=== PATIENT | female | born 1985 | race Caucasian/White ===

== ENCOUNTER 2016-12-21 17:58 | Emergency (ER) | payer MEDICAID ==
[~2016-12-21] VITALS: Ht 157.5 cm; Wt 113.6 kg
[~2016-12-21 17:58] MED LIST: AMOXICILLIN 50500 MG PO; AMOXICILLIN 8751 TAB PO; AMOXICILLIN/CLA1 TA1 PO; AURALGAN EAR DR15 ML OT; BCP TD; CARAFATE 1GM1 G PO; CIPRO 500MG TA500 MG PO; DULERA1 ARO IH; EPI EZ PEN1 MG/ML IM; EPIPEN 2-PAK1 MG/ML IM; ERRIN0.35 MG PO; FLAGYL500 MG PO; FLEXERIL; FOLIC ACID; FOLIC ACID 11 MG/TA1 PO; LEVAQUIN 750MG750 MG PO; LEVEMIR FLEXPEN SC; LORTAB 5/500 501 TAB; LORTAB 5/500 501 TAB PO; LORTAB 7.5/5001 TAB PO; METHERGINE0.2 MG/TAB PO; MULTIVITAMIN FO1 CAP PO; NAPROSYN500 MG PO; NO HOME MEDICATIONS; NORCO 325 MG-51 TAB PO; NOVOLOG 100U100 U/M1 SC; NOVOLOG FLEX100 U/ML SC; PEPCID 20MG TAB20 MG PO; PERCOCET 325 MG1 TA2 PO; PHENERGAN 25 TA25 MG PO; PREDNISONE10 MG PO; PRENATAL1 TA1 PO; PRENATAL1 TA2 PO; PROVENTIL0.09 MG/A1 IH; REGLAN 10MG10 MG/TAB PO; SPRINTEC 35 MCG1 TAB PO; TOPAMAX 25MG25 M1 PO; ULTRAM 50MG TAB50 MG PO; ZITHROMAX Z PA250 MG PO; ZOFRAN4 M1 PO; [UNRECOGNIZED DRUG - OTHER] PO
[2016-12-21 18:07] VITALS: TEMP 98.7
[2016-12-21] MEDS ORDERED: PRILOSEC 20MG20 MG PO (18:10)
[2016-12-21] MEDS ORDERED: MAXALT10 MG PO (18:10)
[2016-12-21] MEDS ORDERED: VENTOLIN0.09 MG IH (18:11)
[2016-12-21 19:40] VITALS: BP 107/73; PULSE 76
== END 2016-12-21 19:40 | disposition home or self-care (01) ==
LOC: COL.ER 17:58
DX: G43.909 Migraine, unspecified, not intractable, without status migrainosus (principal); F17.210 Nicotine dependence, cigarettes, uncomplicated
CPT/HCPCS: J1885; J2550

== ENCOUNTER 2017-04-18 17:01 | Emergency (ER) | payer SELFPAY ==
[~2017-04-18] VITALS: Ht 160 cm; Wt 120.5 kg
[~2017-04-18 17:01] MED LIST changes: +MAXALT10 MG PO; +PRILOSEC 20MG20 MG PO; +VENTOLIN0.09 MG IH
[2017-04-18 17:10] VITALS: BP 138/84; PULSE 89; TEMP 98.1
[2017-04-18] MEDS ORDERED: FLEXERIL 1010 MG/TAB PO (18:11)
== END 2017-04-18 18:56 | disposition home or self-care (01) ==
LOC: COL.ER 17:01
DX: M53.3 Sacrococcygeal disorders, not elsewhere classified (principal); M54.5 Low back pain; G43.909 Migraine, unspecified, not intractable, without status migrainosus; K21.9 Gastro-esophageal reflux disease without esophagitis; J45.909 Unspecified asthma, uncomplicated; F17.210 Nicotine dependence, cigarettes, uncomplicated
CPT/HCPCS: J2360

== ENCOUNTER 2017-05-05 20:32 | Emergency (ER) | payer SELFPAY ==
[~2017-05-05] VITALS: Ht 160 cm; Wt 119.4 kg
[~2017-05-05 20:32] MED LIST changes: +FLEXERIL 1010 MG/TAB PO
[2017-05-05 20:36] VITALS: BP 141/76; TEMP 97.8
[2017-05-05] MEDS ORDERED: TESSALON P100 MG/CAP PO (20:48)
[2017-05-05 21:13] LABS: BASO # 0.1 (0.0-0.2); BASO % 0.7 % (0.0-2.0); EOS # 0.2 (0.0-0.7); EOS % 1.4 % (0-4.0); GRAN # 9.3 (1.4-6.5); GRAN % 67.5 % (42.2-75.2); HEMATOCRIT 41.2 % (37.0-47.0); HEMOGLOBIN 13.8 g/dl (12.5-16.0); LYMPH # 3.4 (1.2-3.4); LYMPH % 24.6 % (20.0-51.0); MEAN CELL VOLUME 87 fl (80.0-100.0); MEAN CORPUSCULAR HEMOGLOBIN 29 pg (27.0-31.0); MEAN CORPUSCULAR HGB CONC 34 g/dl (33.0-37.0); MEAN PLATELET VOLUME 10.1 fl (7.4-10.4); MONO # 0.8 (0.1-0.6); MONO % 5.4 % (1.7-9.3); PLATELET COUNT 269 K/mm3 (130-400); RED BLOOD COUNT 4.75 M/mm3 (4.10-5.30); REDCELL DISTRIBUTION WIDTH-CV 13.5 % (11.5-14.5); WHITE BLOOD COUNT 13.8 K/mm3 (4.8-10.8)
[2017-05-05 21:21] LABS: ADJUSTED CALCIUM 9.2 mg/dL (8.4-10.2); ALBUMIN 4.3 gm/dL (3.5-5.0); BILIRUBIN,TOTAL 0.4 mg/dL (0.0-1.0); CALCIUM 9.4 mg/dL (8.4-10.2); CREATININE, serum 0.78 mg/dL (0.52-1.25); POTASSIUM 3.5 mmol/L (3.4-5.0); TOTAL PROTEIN 7.8 gm/dL (6.4-8.2)
[2017-05-05] MEDS ORDERED: PREDNISONE20 MG PO (23:10)
[2017-05-05] MEDS ORDERED: ZITHROMAX500 M2 PO (23:10)
[2017-05-06] MEDS ORDERED: COMBIRESP IH (00:09)
[2017-05-06 00:11] VITALS: PULSE 96
== END 2017-05-06 00:11 | disposition home or self-care (01) ==
LOC: COL.ER 20:32
PROVIDERS: Emergency Medicine
DX: J45.909 Unspecified asthma, uncomplicated (principal); K21.9 Gastro-esophageal reflux disease without esophagitis; F17.210 Nicotine dependence, cigarettes, uncomplicated; Z90.49 Acquired absence of other specified parts of digestive tract
CPT/HCPCS: J0696; J2930; J7030

== ENCOUNTER 2017-08-21 17:24 | Emergency (ER) | payer MEDICAID ==
[~2017-08-21] VITALS: Ht 157.5 cm; Wt 113.6 kg
[~2017-08-21 17:24] MED LIST changes: +COMBIRESP IH; +PREDNISONE20 MG PO; +TESSALON P100 MG/CAP PO; +ZITHROMAX500 M2 PO
[2017-08-21 17:34] VITALS: BP 137/80; PULSE 83; TEMP 97.9
== END 2017-08-21 19:45 | disposition home or self-care (01) ==
LOC: COL.ER 17:24
DX: S43.402A Unspecified sprain of left shoulder joint, initial encounter (principal); F17.210 Nicotine dependence, cigarettes, uncomplicated; X50.0XXA Overexertion from strenuous movement or load, initial encounter; Y92.009 Unspecified place in unspecified non-institutional (private) residence as the place of occurrence of the external cause
CPT/HCPCS: J1885

== ENCOUNTER → 2017-12-03 | Outpatient (CLI) | payer MEDICAID | LOC: COL.LAB 11:31 | DX: N91.2 Amenorrhea, unspecified (principal) ==

== ENCOUNTER 2017-12-27 12:09 | Emergency (ER) | payer MEDICAID ==
[~2017-12-27] VITALS: Ht 157.5 cm; Wt 113.6 kg
[2017-12-27 12:11] VITALS: BP 117/75; TEMP 97.4
[2017-12-27 13:10] VITALS: PULSE 84
== END 2017-12-27 13:08 | disposition home or self-care (01) ==
LOC: COL.ER 12:09
DX: M25.561 Pain in right knee (principal); G43.909 Migraine, unspecified, not intractable, without status migrainosus; F17.210 Nicotine dependence, cigarettes, uncomplicated; E11.9 Type 2 diabetes mellitus without complications; Z79.84 Long term (current) use of oral hypoglycemic drugs

== ENCOUNTER 2018-01-25 10:54 | Outpatient (RCR) | payer MEDICAID ==
[2006-07-27 07:00] VITALS: BP 99/55; PULSE 80; TEMP 98
== END 2018-02-10 11:02 | disposition home or self-care (01) ==
LOC: WSC 10:54
DX: M25.561 Pain in right knee (principal); Z79.899 Other long term (current) drug therapy; Z72.0 Tobacco use
CPT/HCPCS: G8978-GP; G8979-GP

== ENCOUNTER 2018-04-12 22:10 | Emergency (ER) | payer MEDICAID ==
[~2018-04-12] VITALS: Ht 157.5 cm; Wt 116.8 kg
[2018-04-12 22:19] VITALS: BP 133/74; TEMP 98.8
[2018-04-12] MEDS ORDERED: PRENATAL PO (22:30)
[2018-04-12 23:24] LABS: BASO # 0.1 (0.0-0.2); BASO % 0.5 % (0.0-2.0); EOS # 0.2 (0.0-0.7); EOS % 1.3 % (0-4.0); GRAN # 8.9 (1.4-6.5); HEMOGLOBIN 12.6 g/dl (12.5-16.0); LYMPH # 3.8 (1.2-3.4); LYMPH % 27.7 % (20.0-51.0); MEAN CELL VOLUME 87 fl (80.0-100.0); MEAN CORPUSCULAR HEMOGLOBIN 30 pg (27.0-31.0); MEAN CORPUSCULAR HGB CONC 35 g/dl (33.0-37.0); MEAN PLATELET VOLUME 9.7 fl (7.4-10.4); MONO # 0.7 (0.1-0.6); MONO % 5.1 % (1.7-9.3); PLATELET COUNT 266 K/mm3 (130-400); RED BLOOD COUNT 4.15 M/mm3 (4.10-5.30); REDCELL DISTRIBUTION WIDTH-CV 14.1 % (11.5-14.5)
[2018-04-12 23:37] LABS: ALBUMIN 3.6 gm/dL (3.5-5.0); BILIRUBIN,TOTAL 0.2 mg/dL (0.0-1.0); CALCIUM 8.7 mg/dL (8.4-10.2); CREATININE, serum 0.54 mg/dL (0.52-1.25); POTASSIUM 3.9 mmol/L (3.4-5.0); TOTAL PROTEIN 7.3 gm/dL (6.4-8.2)
[2018-04-12 23:43] LABS: COLLECTION METHOD CATHETER
[2018-04-13 00:08] LABS: MUCOUS Present /lpf; PH 7 (5-8); SQUAMOUS EPITHELIAL 0-2 /hpf; URINE APPEARANCE Clear; URINE BACTERIA Moderate /hpf; URINE BILIRUBIN Negative (NEGATIVE); URINE BLOOD Negative (NEGATIVE); URINE COLOR Straw; URINE GLUCOSE Negative (NEGATIVE); URINE KETONE Negative (NEGATIVE); URINE LEUKOCYTE ESTERASE Negative (NEGATIVE); URINE NITRATE Negative (NEGATIVE); URINE PROTEIN(semi-quant) Negative (NEGATIVE); URINE RBC 0-2 /hpf; URINE UROBILINOGEN Negative (NEGATIVE)
[2018-04-13] MEDS ORDERED: MACROBID 1100 MG/CAP PO (00:28)
[2018-04-13 00:40] VITALS: PULSE 89
== END 2018-04-13 00:40 | disposition home or self-care (01) ==
LOC: COL.ER 22:10
PROVIDERS: Emergency Medicine
DX: O26.851 Spotting complicating pregnancy, first trimester (principal); O23.41 Unspecified infection of urinary tract in pregnancy, first trimester; O99.211 Obesity complicating pregnancy, first trimester; O24.419 Gestational diabetes mellitus in pregnancy, unspecified control; E66.9 Obesity, unspecified; Z3A.13 13 weeks gestation of pregnancy; Z90.49 Acquired absence of other specified parts of digestive tract

== ENCOUNTER 2018-06-19 15:55 | Emergency (ER) | payer MEDICAID ==
[~2018-06-19] VITALS: Ht 157.5 cm; Wt 117.2 kg
[~2018-06-19 15:55] MED LIST changes: +MACROBID 1100 MG/CAP PO; +PRENATAL PO
[2018-06-19 16:07] VITALS: TEMP 96.7
[2018-06-19 18:33] VITALS: PULSE 98
[2018-06-19] MEDS ORDERED: ZITHROMAX Z PA250 MG PO (18:37)
[2018-06-19] MEDS ORDERED: PREDNISONE20 MG PO (18:37)
[2018-06-19 18:40] VITALS: BP 118/69
== END 2018-06-19 19:32 | disposition home or self-care (01) ==
LOC: COL.ER 15:55
DX: J20.9 Acute bronchitis, unspecified (principal); E11.9 Type 2 diabetes mellitus without complications; I10 Essential (primary) hypertension; J45.909 Unspecified asthma, uncomplicated; F17.210 Nicotine dependence, cigarettes, uncomplicated; Z90.49 Acquired absence of other specified parts of digestive tract
CPT/HCPCS: J7512

== ENCOUNTER 2018-08-29 13:55 | Outpatient (RCR) | payer MEDICAID ==
[~2018-08-29] VITALS: Ht 162.6 cm; Wt 127.5 kg
--- NOTE | 2018-08-29 14:00 | NUR ---
Pt arrives on unit ambulatory for NST. Admission assessment completed. Dr. Venegas notified of FHR. Observes strip. Orders for discharge. Pt taken off monitors. Instructed to make NST appointment for next week. Pt will call with availability. Pt leaves unit ambulatory. No questions or concerns.
== END 2018-11-27 | disposition home or self-care (01) ==
LOC: LDRO → ZCOL.LAB 13:55 → LDRO 13:55 → COL.LAB 13:55
DX: O30.043 Twin pregnancy, dichorionic/diamniotic, third trimester (principal); O99.333 Smoking (tobacco) complicating pregnancy, third trimester; F17.210 Nicotine dependence, cigarettes, uncomplicated; Z3A.33 33 weeks gestation of pregnancy

== ENCOUNTER 2018-09-03 17:10 | Outpatient (CLI) | payer MEDICAID ==
[~2018-09-03] VITALS: Ht 157.5 cm; Wt 129.5 kg
--- NOTE | 2018-09-03 17:15 | NUR ---
171- Pt presented to unit ambulatory with complaints of contractions. Pt into bathroom, changes into gown. 1727- Pt into bed, EFM and TOCO applied. Pt coughing a lot, states she has had bronchitis for the past couple weeks, is currently on antibiotics. Assessment completed, VSS. 175- SVE by this RN . Dr John at nurses station. Updated on status. MD to bedside, SVE performed, confirmed dialation. VO to prepare Pt for transfer. VO for LR bolus, Betamethasone 12mg IM now.
[2018-09-03 17:39] VITALS: BP 127/81; PULSE 116; TEMP 99.2
--- NOTE | 2018-09-03 18:20 | NUR ---
18 g started in right hand on second attempt. LR fluid bolus initiated.
[2018-09-03 18:30] VITALS: BP 105/62; PULSE 115
--- NOTE | 2018-09-03 18:35 | NUR ---
Dr. John on unit, verbal orders to start magnesium for tocolysis and neuro protection, see orders. Pt updated on plan of care. Pt and significant other verbalize understanding.
--- NOTE | 2018-09-03 18:50 | NUR ---
ED notified unit that EMS has arrived. Verbal orders from Dr. John that patient is not to transfer until magnesium bolus has finished.
--- NOTE | 2018-09-03 18:52 | NUR ---
Lung sounds clear bilaterally. Deep tendon reflexes 2+. Pt awake, alert, and oriented. Magnesium loading dose of 4 g started at this time, see MAR.
--- NOTE | 2018-09-03 18:55 | NUR ---
Pt given breathing tx states she does not feel any better after tx. EMS here to take her to [place].
[2018-09-03 19:00] VITALS: BP 88/59; PULSE 122
--- NOTE | 2018-09-03 19:12 | NUR ---
Pt tolerated magnesium bolus well. New bag of magnesium started at 2 g/hr. LR infusing at 75 mL/hr. Pt aware of NPO diet and strict bed rest while on magnesium. Transfer team notified that bolus is done infusing. Pt being prepared for transfer.
[2018-09-03 19:15] VITALS: BP 107/53; PULSE 116; TEMP 99.7
--- NOTE | 2018-09-03 19:25 | NUR ---
Telephone report called to [facility]. Full report given to Nisreen Pastor RN. All questions answered.
--- NOTE | 2018-09-03 19:25 | NUR ---
Pt transferred to EMS stretcher independently. IV pumps moved to stretcher, Magnesium to continue infusing at 2 g/hr and LR at 75 mL/hr. Vital signs stable. Category 1 tracing for baby A and baby B. Pt remains awake, alert, and oriented. Pt and significant other left with patient belongings.
== END 2018-09-03 19:25 | disposition short-term general hospital (02) ==
LOC: LDRO 17:10
DX: O62.9 Abnormality of forces of labor, unspecified (principal); Z3A.33 33 weeks gestation of pregnancy
CPT/HCPCS: J0702; J3475; J7120

== ENCOUNTER → 2019-07-10 | Outpatient (CLI) | payer MEDICAID | LOC: COL.RAD 14:45 | DX: Z01.812 Encounter for preprocedural laboratory examination (principal); M72.4 Pseudosarcomatous fibromatosis; J34.89 Other specified disorders of nose and nasal sinuses | CPT/HCPCS: A9585 ==

== ENCOUNTER 2019-12-21 13:54 | Emergency (ER) | payer MEDICAID ==
[~2019-12-21] VITALS: Ht 157.5 cm; Wt 113.6 kg
[2019-12-21 14:10] VITALS: TEMP 97.3
[2019-12-21] MEDS ORDERED: COMBIRESP IH (14:18)
[2019-12-21] MEDS ORDERED: PROAIR HFA0.09 MG/AC IH (14:18)
[2019-12-21] MEDS ORDERED: MAXALT10 MG (14:18)
[2019-12-21 15:29] LABS: BASO # 0.1 (0.0-0.2); BASO % 0.7 % (0.0-2.0); EOS # 0.2 (0.0-0.7); EOS % 1.6 % (0-4.0); GRAN # 7.1 (1.4-6.5); GRAN % 60.4 % (42.2-75.2); HEMATOCRIT 39.9 % (37.0-47.0); HEMOGLOBIN 12.8 g/dl (12.5-16.0); LYMPH # 3.6 (1.2-3.4); MEAN CELL VOLUME 87 fl (80.0-100.0); MEAN CORPUSCULAR HEMOGLOBIN 28 pg (27.0-31.0); MEAN CORPUSCULAR HGB CONC 32 g/dl (33.0-37.0); MEAN PLATELET VOLUME 9.9 fl (7.4-10.4); MONO # 0.7 (0.1-0.6); PLATELET COUNT 268 K/mm3 (130-400); RED BLOOD COUNT 4.59 M/mm3 (4.10-5.30); REDCELL DISTRIBUTION WIDTH-CV 15.9 % (11.5-14.5)
[2019-12-21 15:50] LABS: ALBUMIN 4.1 gm/dL (3.5-5.0); BILIRUBIN,TOTAL 0.3 mg/dL (0.0-1.0); C-REACTIVE PROTEIN 1.4 mg/dL (0.0-0.9); CALCIUM 9.3 mg/dL (8.4-10.2); CREATININE, serum 0.79 (0.52-1.25); POTASSIUM 4.1 mmol/L (3.4-5.0); TOTAL PROTEIN 7.4 gm/dL (6.4-8.2)
[2019-12-21 16:49] LABS: COLLECTION METHOD CLEAN CATCH
[2019-12-21 17:11] LABS: MUCOUS Present /lpf; PH 6 (5-8); SQUAMOUS EPITHELIAL 0-2 /hpf; URINE APPEARANCE Hazy; URINE BACTERIA None Seen /hpf; URINE BILIRUBIN Negative (NEGATIVE); URINE BLOOD Negative (NEGATIVE); URINE COLOR Yellow; URINE GLUCOSE Negative (NEGATIVE); URINE KETONE Negative (NEGATIVE); URINE LEUKOCYTE ESTERASE Negative (NEGATIVE); URINE NITRATE Negative (NEGATIVE); URINE PROTEIN(semi-quant) Negative (NEGATIVE); URINE RBC 0-2 /hpf; URINE UROBILINOGEN Negative (NEGATIVE)
[2019-12-21] MEDS ORDERED: NORCO 325 MG-51 TAB PO (17:47)
[2019-12-21] MEDS ORDERED: ZOFRAN ODT4 MG PO (17:47)
[2019-12-21 18:21] VITALS: BP 132/72; PULSE 88
== END 2019-12-21 18:00 | disposition home or self-care (01) ==
LOC: COL.ER 13:54
PROVIDERS: Physician Assistant
DX: R10.9 Unspecified abdominal pain (principal); G43.909 Migraine, unspecified, not intractable, without status migrainosus; F17.210 Nicotine dependence, cigarettes, uncomplicated; Z90.89 Acquired absence of other organs; Z98.51 Tubal ligation status; Z88.5 Allergy status to narcotic agent; Z88.8 Allergy status to other drugs, medicaments and biological substances
CPT/HCPCS: J1885; J2270; J2405; J7030; Q9967